=== PATIENT | female | born 1990 | race Caucasian/White ===

== ENCOUNTER 2018-11-20 16:14 | Emergency (ER) | payer BC ==
[2018-11-20] MEDS ORDERED: LIDOCAINE 2% JELLY 5 ML TUBE TOP ONE (16:58)
--- NOTE | 2018-11-20 16:59 | ER Document Report ---
ED Medical Screen (RME) - General Chief Complaint: Nausea Stated Complaint: NAUSEA Time Seen by Provider: 11/20/18 16:51 Mode of Arrival: Ambulatory Information source: Patient Notes: Patient had a thrombosed hemorrhoid incised per her primary doctor. Patient was placed on Tylenol with codeine. Patient complains of increased swelling, pain and continued bleeding. Patient denies any fever. I have greeted and performed a rapid initial assessment of this patient. A comprehensive ED assessment and evaluation of the patient, analysis of test results and completion of the medical decision making process will be conducted by additional ED providers. TRAVEL OUTSIDE OF THE [place] IN LAST 30 DAYS: No - Related Data Allergies/Adverse Reactions: No Known Allergies Allergy (Verified 09/10/15 21:30) Past Medical History Pulmonary Medical History: Reports: Hx Bronchitis Neurological Medical History: Reports: Hx Migraine Musculoskeltal Medical History: Reports Hx Musculoskeletal Trauma Skin Medical History: Reports Hx Eczema Psychiatric Medical History: Reports: Hx Depression - Immunizations Hx Diphtheria, Pertussis, Tetanus Vaccination: Yes Physical Exam - Vital signs Vitals: Temp Pulse Resp BP Pulse Ox 98.2 F 76 16 138/86 H 97 11/20/18 16:17 11/20/18 16:17 11/20/18 16:17 11/20/18 16:17 11/20/18 16:17 - General General appearance: Appears well, Alert In distress: None Course - Vital Signs Vital signs: Temp Pulse Resp BP Pulse Ox 98.2 F 76 16 138/86 H 97 11/20/18 16:17 11/20/18 16:17 11/20/18 16:17 11/20/18 16:17 11/20/18 16:17
[2018-11-20] MEDS ORDERED: LIDOCAINE 0.5%/EPINEPHRINE INJ 50 ML VIAL INJ ONE (17:45)
[2018-11-20] MEDS ORDERED: OXYCODONE-ACETAMINOPHEN 5-325 MG TABLET PO ONE (17:46)
--- NOTE | 2018-11-20 19:04 | ER Document Report ---
ED GI Bleed / Rectal Pain - General Chief Complaint: Hemorrhoids Stated Complaint: NAUSEA Time Seen by Provider: 11/20/18 16:51 Mode of Arrival: Ambulatory Notes: RME NOTE: Patient had a thrombosed hemorrhoid incised per her primary doctor. Patient was placed on Tylenol with codeine. Patient complains of increased swelling, pain and continued bleeding. Patient denies any fever. MY HPI: Patient voices that she feels as though the thrombosed hemorrhoid has become larger since yesterday's visit to an urgent care when it was incised and drained. Patient states she has been taking Tylenol 3 at home with no improv ement. Patient's denying use of stool softeners or partaking in sitz bath's. Patient has no other medical problems, denies any medications daily, denies any allergies. Patient states the bleeding is typically only when she wipes her rectal area. TRAVEL OUTSIDE OF THE [place] IN LAST 30 DAYS: No - Related Data Allergies/Adverse Reactions: No Known Allergies Allergy (Verified 09/10/15 21:30) Past Medical History - General Information source: Patient - Social History Smoking Status: Current Every Day Smoker Family History: Arthritis, CAD, CVA, DM, Hyperlipidemia, Hypertension, Malignancy, Thyroid Disfunction Patient has suicidal ideation: No Patient has homicidal ideation: No Pulmonary Medical History: Reports: Hx Bronchitis Neurological Medical History: Reports: Hx Migraine Musculoskeletal Medical History: Reports Hx Musculoskeletal Trauma Skin Medical History: Reports Hx Eczema Psychiatric Medical History: Reports: Hx Depression - Immunizations Hx Diphtheria, Pertussis, Tetanus Vaccination: Yes Review of Systems - Review of Systems Constitutional: denies: Fever EENT: No symptoms reported Cardiovascular: No symptoms reported Respiratory: No symptoms reported Gastrointestinal: See HPI Genitourinary: No symptoms reported Female Genitourinary: No symptoms reported Musculoskeletal: No symptoms reported Skin: See HPI Hematologic/Lymphatic: See HPI Neurological/Psychological: No symptoms reported Physical Exam - Vital signs Vitals: Temp Pulse Resp BP Pulse Ox 98.2 F 76 16 138/86 H 97 11/20/18 16:17 11/20/18 16:17 11/20/18 16:17 11/20/18 16:17 11/20/18 16:17 - Notes Notes: GENERAL: Alert, interacts well. No acute distress. HEAD: Normocephalic, atraumatic. EYES: Pupils equal, round, and reactive to light. Extraocular movements intact. ENT: Oral mucosa moist, tongue midline. NECK: Full range of motion. Supple. Trachea midline. LUNGS: Clear to auscultation bilaterally, no wheezes, rales, or rhonchi. No respiratory distress. HEART: Regular rate and rhythm. No murmur ABDOMEN: Soft, non-tender. Non-distended. Bowel sounds present in all 4 quadrants. EXTREMITIES: Moves all 4 extremities spontaneously. No edema, normal radial and dorsalis pedis pulses bilaterally. No cyanosis. BACK: no cervical, thoracic, lumbar midline tenderness. No saddle anesthesia, normal distal neurovascular exam. NEUROLOGICAL: Alert and oriented x3. Normal speech. cranial nerves II through XII grossly intact PSYCH: Normal affect, normal mood. SKIN: Warm, dry, normal turgor. 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 No obvious bleeding. Course - Re-evaluation Re-evalutation: 11/20/18 19:00 Thrombosed hemorrhoid was incised and drained of clot. Discussed with patient use of stool softeners, pain medication, sitz bath's and following up with gastroenterology. Patient remains hemodynamically stable, has pink conjunctival palpebral bilaterally. Denies weakness, dizziness, shortness of breath or other signs of anemia. Stable for discharge. - Vital Signs Vital signs: Temp Pulse Resp BP Pulse Ox 98.2 F 76 16 138/86 H 97 11/20/18 16:17 11/20/18 16:17 11/20/18 16:17 11/20/18 16:17 11/20/18 16:17 Procedures - Incision and Drainage Thrombosed hemorrhoid Type: Simple Anesthetic type: 1% Lidocaine w/epi Blade size: 11 I&D procedure: Betadine prep applied, Sterile dressing applied Incision Method: Incision made by scalpel Amount/type of drainage: 2 blood clots Discharge - Discharge Clinical Impression: Thrombosed external hemorrhoid Condition: Stable Disposition: HOME, SELF-CARE Instructions: Incision of Thrombosed Hemorrhoids ([facility]) Additional Instructions: As we discussed you have been seen and treated in the emergency department for a thrombosed hemorrhoid. Please make sure you are taking pain medication as prescribed as well as stool softeners as prescribed. Please also make sure you are partaking in warm baths with Epsom salts 3 times a day. Please follow-up with gastroenterology for continued care. Return to the emergency room for any concerns. Prescriptions: Docusate Sodium [Colace 100 mg Capsule] 100 mg PO DAILY #30 capsule Hydrocodone/Acetaminophen [[place] 5-325 Tablet] 1 each PO Q6 PRN #20 tablet PRN Reason: Forms: Return to Work Referrals: ROSALIO DOSHI MD [ACTIVE STAFF] - Follow up as needed
[2018-11-20 19:29] VITALS: BP 130/86
== END 2018-11-20 19:29 | disposition home or self-care (01) ==
LOC: ER 16:14
DX: K64.5 Perianal venous thrombosis (principal); F17.200 Nicotine dependence, unspecified, uncomplicated
CPT/HCPCS: 99282; 46083; J3490